=== PATIENT | female | born 1960 | race Hispanic/Latino ===

== ENCOUNTER → 2024-05-03 | Outpatient (CLI) | payer OTHER ==
--- NOTE | 2024-05-03 13:50 | HMCIMG ---
CT HEART SAVER PROMOTIONAL HISTORY: Calcium scoring COMPARISON: None TECHNIQUE: Computed tomography of the heart was performed with ECG gating and suspended respiration. Postprocessing was performed on a computer workstation to obtain diastolic phase images, determine calcium score and provide a quantitative assessment of extent of disease. This CT included only the heart. HeartSaver score is 58.6. Please see cardiac calcium score report. The available CT chest images show no acute finding. CT was performed with one or more following dose reduction techniques: automated exposure control, adjustment of the mA and kv according to patient's size, or use of a iterative reconstruction technique.
== END | disposition home or self-care (01) ==
LOC: RAH 12:53
PROVIDERS: ATTEND Nurse Practitioner Family
DX: Z13.6 Encounter for screening for cardiovascular disorders (principal)
CPT/HCPCS: 75571

== ENCOUNTER 2025-02-09 07:16 | Day surgery (SDC) | payer MEDICARE ==
[2025-02-09] VITALS (10 sets, daily range): BP systolic 130–149; BP diastolic 65–86; PULSE 61–79; RESP 15–18; TEMP 97.3–97.5
[~2025-02-09] VITALS: Ht 157.5 cm; Wt 96.2 kg
[~2025-02-09 07:16] MED LIST: ATOR10 PO; CETI-89 PO; CITA-107 PO; LOSA50TA64 PO
[2025-02-09] MEDS: 0.9%NACL 1000ML 1,000 ML IV ONE (07:49)
[2025-02-09] MEDS ORDERED: LIDOCAINE PF 100MG/5ML (2%) SYRINGE 5ML ONE (10:13)
--- NOTE | 2025-02-09 12:13 | NUR ---
Full and complete discharge instructions given to Patient and Brother, Nestor Solorio both verbally and in writing. Explained GI procedure precautions and follow up. All questions answered. PIV removed with catheter tip intact. Home with Brother W/C to POV.
== END 2025-02-09 12:05 | disposition home or self-care (01) ==
LOC: DAH 07:16 → ENDO 07:16
PROVIDERS: ATTEND Surgery
DX: K30 Functional dyspepsia (principal); K91.1 Postgastric surgery syndromes; K22.89 Other specified disease of esophagus; I10 Essential (primary) hypertension; F41.9 Anxiety disorder, unspecified; F32.A Depression, unspecified; M19.90 Unspecified osteoarthritis, unspecified site; E66.01 Morbid (severe) obesity due to excess calories; K44.9 Diaphragmatic hernia without obstruction or gangrene; E78.5 Hyperlipidemia, unspecified; Z98.84 Bariatric surgery status; Z80.0 Family history of malignant neoplasm of digestive organs; Z79.899 Other long term (current) drug therapy; Z68.37 Body mass index [BMI] 37.0-37.9, adult
CPT/HCPCS: 43270; J7030; J2003; J2704; A4620; C1726; A4215 ×2; A4223; A4222; A4221; A4663; A4606; J3490